=== PATIENT | male | born 1965 ===

== ENCOUNTER 2016-07-29 17:12 | Emergency (ER) | payer OTHER ==
--- NOTE | 2016-07-29 18:20 | EDM.PDOC ---
ED HPI HEAD INJURY - General Source of Information: Reports: Patient History Limitations: Reports: No limitations - History of Present Illness Symptom Onset Date: 07/29/16 Location: Reports: face Quality: Reports: ache Improves with: none Worsens with: none Associated Symptoms: Reports: loss of consciousness, other (cough) Treatments DIRECTOR OF PERIOPERATIVE SERVICES: Reports: Other medication(s) <Mukul Murillo - Last Filed: 07/29/16 19:33> <Jone Frankel - Last Filed: 07/29/16 20:03> - General Chief Complaint: Head Injury Stated Complaint: FLU/COUGH Time Seen by Provider: 07/29/16 18:12 - History of Present Illness INITIAL COMMENTS - FREE TEXT/NARRATIVE: Pt states that he has been having cough for the last 4 weeks and today he was coughing so hard that he lost consciousness and fell hitting his head. abrasion to head on the left. (ChidiMukul Beatrisshilo) ED ROS GENERAL - Review of Systems Review Of Systems: See Below Respiratory: Reports: Cough Skin: Reports: wound Neurological: Reports: Syncope <Mukul Murillo - Last Filed: 07/29/16 19:33> ED EXAM, HEAD INJURY - Physical Exam Exam: See Below Exam Limited By: No limitations General Appearance: alert, WD/WN, no apparent distress Head: atraumatic, normocephalic Nexus Criteria: No: posterior, midline cervical tenderness, evidence of intoxication, altered level of consciousness, focal neurological deficit, painful distracting injuries Eyes: bilateral eye: EOMI, normal inspection, PERRL Ears: normal external exam, normal canal, hearing grossly normal, TM dullness ( right ear ), TM fluid (right ear) Nose: normal inspection, normal mucousa, no blood Throat/Mouth: Normal inspection, Normal lips, Normal teeth, Normal gums, Normal oropharynx, Normal voice, No airway compromise Neck: non-tender, full range of motion, normal alignment, normal inspection Respiratory: no respiratory distress, no accessory muscle use, chest non-tender , decreased breath sounds Cardiovascular: normal peripheral pulses, regular rate, rhythm, no edema, no gallop, no JVD, no murmur, no rub 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, no motor/sensory deficits, alert, normal mood/affect, oriented x 3 Skin: Normal color (abrasion to left forehead and cheek), Warm/dry - Shelly Coma Score Best Eye Response ([place]): (4) open spontaneously Best Verbal Response ([place]): (5) oriented Best Motor Response ([place]): (6) obeys commands Shelly Total: 15 <Mukul Murillo - Last Filed: 07/29/16 19:33> Departure <Mukul Murillo - Last Filed: 07/29/16 19:33> - Departure Time of Disposition: 20:01 Condition: good <Jone Frankel - Last Filed: 07/29/16 20:03> - Departure Disposition: Home, Self-Care 01 Clinical Impression: Cough, Fall, Head contusion Additional Instructions: Rest and take Acetaminophen 500mg Q 4-6 hours for pain Apply Ice to abrasion area TID X 15 mins. Increase intake of Fluids For Cough try : Tessalon Perles 100mg TID # 30 F/U w/ PCP
[2016-07-29] MEDS ORDERED: Sodium Chloride 0.9% 10 ML Syringe FLUSH PRN (18:24)
[2016-07-29] MEDS ORDERED: Albuterol/Ipratropium 3.0-0.5 MG/3 ML Neb Soln NEB ONE (18:26)
[2016-07-29] MEDS ORDERED: Sodium Chloride 0.9% 1,000 ML IV SCH (18:30)
[2016-07-29 18:32] VITALS: BP 127/77
[2016-07-29 19:04] LABS: CHLORIDE,CL 102 mmol/L (101-111); SODIUM,NA 136 mmol/L (135-145)
[2016-07-29] MEDS ORDERED: Bacitracin Oint 1 GM U/D Packet TOP ONE (20:06)
--- NOTE | 2016-07-30 23:40 | EKG ---
07/29/2016 - [facility] BECKER - EKG shows normal sinus rhythm. [facility] /[id number]
== END 2016-07-29 20:25 | disposition home or self-care (01) ==
LOC: DL.ED 17:12
DX: R05 Cough (principal); S00.93XA Contusion of unspecified part of head, initial encounter; S00.81XA Abrasion of other part of head, initial encounter; W19.XXXA Unspecified fall, initial encounter
CPT/HCPCS: 36415; 70450; 71020; 80048; 82550; 82553; 84484; 85025; 93005; 93010; 96360; 99285; J7030; J7050; 99282

== ENCOUNTER 2024-04-21 10:18 | Observation (INO) | payer MEDICAID ==
[2024-04-21] MEDS ORDERED: Sodium Chloride 0.9% 10 ML Syringe FLUSH PRN (10:58)
[2024-04-21] MEDS: Albuterol/Ipratropium 3.0-0.5 MG/3 ML Neb Soln NEB ONE ×2 (11:08→12:39)
[2024-04-21] MEDS: methylPREDNISolone Sodium Succinate 40 MG/1 ML SDV IM ONE (11:20)
[2024-04-21 11:25] LABS: BASOPHILS PERCENT AUTO 0.2 % (0.0-1.0); EOSINOPHILS PERCENT AUTO 1.7 % (1.0-3.0); HEMATOCRIT 47.5 % (40.0-54.0); HEMOGLOBIN 15.3 g/dL (14.0-18.0); LYMPHOCYTES PERCENT AUTO 41.3 % (20.5-50.1); MEAN CORPUSCULAR HEMOGLOBIN 29.5 pg (27.0-34.0); MEAN CORPUSCULAR HGB CONC 32.2 g/dL (33.0-35.0); MEAN CORPUSCULAR VOLUME 91.7 fL (80-100); MONOCYTES PERCENT AUTO 8.3 % (2-8); NEUTROPHILS PERCENT AUTO 48.5 % (42.2-75.2); PLATELET COUNT,PLT 148 10^3/uL (150-450); RED BLOOD CELL COUNT 5.18 10^6/uL (4.6-6.2); WHITE BLOOD CELL COUNT,WBC 5.9 10^3/uL (5.0-10.0)
[2024-04-21 11:45] LABS: ALBUMIN 3.3 g/dL (3.4-5.0); ANION GAP 15.2 mEq/L (7-13); BILIRUBIN TOTAL 0.6 mg/dL (0.2-1.0); BUN/CREATININE RATIO 7.6 (No establ ref range); CALCIUM 8.4 mg/dL (8.5-10.1); CREATININE 1.05 mg/dL (0.70-1.30); EST CRCL DRUG DOSING (CG) 79.18 mL/min; MAGNESIUM 2.1 mg/dL (1.8-2.4); POTASSIUM,K 4.2 mmol/L (3.5-5.1); PROTEIN TOTAL,TP 8.1 g/dL (6.4-8.2)
[2024-04-21 11:46] LABS: LACTIC ACID 1.6 mmol/L (0.4-2.0)
[2024-04-21 11:49] LABS: A/G RATIO 0.69
[2024-04-21 11:54] LABS: PROTHROMBIN TIME 9.9 SEC (9.0-12.0); PTT,PARTIAL THROMBOPLSTIN TIME 23.9 SEC (22.0-34.0)
[2024-04-21] MEDS: Azithromycin 500 MG in Sodium Chloride 0.9% 250 ML IV ONE (13:06)
[2024-04-21] MEDS: cefTRIAXone 2 GM in Sodium Chloride 0.9% 100 ML IV ONE (13:14)
[2024-04-21] MEDS: Sodium Chloride 0.9% 1,000 ML IV SCH (14:29)
[2024-04-21] MEDS: metFORMIN 500 MG Tab PO SCH (18:26)
[2024-04-21] MEDS: Metoprolol Succinate 25 MG Tab.ER PO SCH (18:27)
[2024-04-21] MEDS: Lisinopril 20 MG Tab PO SCH (18:27)
[2024-04-21] MEDS: Rosuvastatin 10 MG Tab PO SCH (18:28)
[2024-04-22] MEDS: Albuterol/Ipratropium 3.0-0.5 MG/3 ML Neb Soln NEB PRN (08:57)
[2024-04-22] MEDS: Azithromycin 500 MG in Sodium Chloride 0.9% 250 ML IV SCH (09:12)
[2024-04-22] MEDS: cefTRIAXone 1 GM Vial IV SCH (09:12)
[2024-04-22] MEDS: Empagliflozin 25 MG Tab PO SCH (09:13)
[2024-04-22] MEDS: Cholecalciferol (Vitamin D3) 25 MCG Tab PO SCH (09:14)
[2024-04-22] MEDS: Loratadine 10 MG Tab PO SCH (09:14)
[2024-04-22 09:16] VITALS: PULSE 96
[2024-04-22] MEDS: Azithromycin 500 MG Vial ONE (09:29)
[2024-04-22 11:34] VITALS: BP 146/77
== END 2024-04-22 14:30 | disposition home or self-care (01) ==
LOC: DL.ED 10:18 → DL.MS 13:06
PROVIDERS: ADMIT Internal Medicine; ATTEND Internal Medicine
DX: J18.1 Lobar pneumonia, unspecified organism (principal); I10 Essential (primary) hypertension; E11.9 Type 2 diabetes mellitus without complications; E66.9 Obesity, unspecified; Z79.84 Long term (current) use of oral hypoglycemic drugs; Z79.899 Other long term (current) drug therapy
CPT/HCPCS: 36415; 71046; 80053; 83605; 83735; 83880; 84484; 85025; 85379; 85610; 85730; 87040; 87070; 87205; 87428-QW; 94640; 99222; 99239; A9270-GY; J0456; J0696; J2919; J3490; J7030; J7050; J7620-GY